=== PATIENT | female | born 2005 | race Two or more races ===

== ENCOUNTER 2024-11-05 19:52 | Emergency (ER) | payer MEDICAID, SELFPAY ==
[2024-11-05 19:54] VITALS: BMI 45.1
[2024-11-05 20:09] VITALS: BP 150/98; PULSE 77; RESP 18; TEMP 37.1; O2SAT 95
--- NOTE | 2024-11-05 20:19 | PD.EDRME ---
Rapid Medical Screening Exam RME Arrival date/time: 11/05/24 19:52 19-year-old female presents emergency department complaining of epigastric pain with 1 episode of vomiting that occurred today. Patient reports seeing small amount of blood in vomit. Chief Complaint: Abdominal Pain Time Seen by Provider: 11/05/24 20:08 Vital signs: Vital Signs Temperature 98.7 F 11/05/24 20:09 Pulse Rate 77 11/05/24 20:09 Respiratory Rate 18 11/05/24 20:09 Blood Pressure 150/98 H 11/05/24 20:09 Pulse Oximetry (%) 95 11/05/24 20:09 Oxygen Delivery Method Room Air 11/05/24 20:09 Vital signs reviewed by provider: Yes
[2024-11-05 21:11] LABS: Basophils % (Auto) 0 % (0-2.5); Eosinophils # (Auto) 0.1 Thou/mm3 (0.0-0.5); Eosinophils % (Auto) 1 % (0-10); Hematocrit 38.9 % (36.0-46.0); Hemoglobin 12.8 g/dL (12.0-16.0); Immature Granulocytes % (Auto) 0 % (0-0); Immature Granulocytes Auto 0.02 Thou/mm3 (0.00-0.00); Lymphocytes # (Auto) 1.8 Thou/mm3 (1.0-4.8); Lymphocytes % (Auto) 23 % (10-50); Mean Corpuscular HGB Conc 32.9 g/dl (31.0-37.0); Mean Corpuscular Hemoglobin 26.5 pg (25.0-35.0); Mean Corpuscular Volume 81 fL (80-100); Monocytes # (Auto) 0.6 Thou/mm3 (0.0-0.8); Monocytes % (Auto) 7 % (0-12); Neutrophils # (Auto) 5.5 Thou/mm3 (1.8-7.7); Neutrophils % (Auto) 69 % (37-80); Nucleated Red Blood Cell % 0 /100 WBC (0); Platelet Count 355 Thou/mm3 (140-440); RDW Standard Deviation 35.1 fL (36.4-46.3); Red Blood Count 4.83 Miln/mm3 (4.00-5.20)
[2024-11-05] MEDS: ONDANSETRON ODT 4 MG TABRAP PO (21:14)
[2024-11-05 21:20] LABS: HCG,Qualitative Serum Negative
[2024-11-05 21:20] LABS: Collection Type, Urine Clean Catch
[2024-11-05 21:21] LABS: Albumin, Serum 4.8 gm/dL (3.5-5.0); Albumin/Globulin Ratio 1.4 (1.2-2.2); Alkaline Phosphatase 102 U/L (46-116); Anion Gap 9 (7-16); Aspartate Amino Transferase 12 U/L (0-34); BUN/Creatinine Ratio 17 Ratio (12-20); Bilirubin,Total 0.4 mg/dL (0.3-1.2); Blood Urea Nitrogen 10 mg/dL (9-23); Calcium 9.7 mg/dL (8.3-10.6); Calcium (Corrected) 9.7 mg/dL (8.5-10.1); Carbon Dioxide 27.4 mMol/L (20.0-31.0); Chloride 103 mMol/L (98-107); Creatinine (Component) 0.6 mg/dL (0.6-1.3); Estimated Creatinine Clearance 202.3 mL/min (>60); Globulin 3.4 gm/dL (2.3-3.5); Glucose 104 mg/dL (74-106); Lipase 37 U/L (12-53); Osmolality,Calculated 276 (275-295); Potassium 3.7 mMol/L (3.4-5.1); Sodium 139 mMol/L (136-145); Total Protein 8.2 gm/dL (5.7-8.2); eGFR > 60 See Note
[2024-11-05 21:28] LABS: Alanine Aminotransferase 11 U/L (10-49)
[2024-11-05 22:15] LABS: Amphetamine/Methamp Scrn,U Negative (Negative); Barbiturate Screen,Urine Negative (Negative); Benzodiazepines Screen,Urine Negative (Negative); Benzoylecgonine Screen, Ur Negative (Negative); Fentanyl Screen,Urine Negative (Negative); Opiate Screen,Urine Negative (Negative); THC Screen,Urine Positive (Negative)
[2024-11-05 22:16] LABS: Bacteria,Urine Rare; Bilirubin,Urine Negative (Negative); Blood,Urine Negative (Negative); Clarity,Urine Turbid (Clear/Hazy); Color,Urine Yellow (Lt Yel-Yel); Culture Indicated,Urine Not Indicated; Glucose, Urine Negative (Negative); Ketones,Urine Negative (Negative); Leukocyte Esterase,Urine Negative (Negative); Nitrite,Urine Negative (Negative); Protein,Urine 1+ (Neg - Trace); RBC,Urine 12 /hpf (0-3); Specific Gravity,Urine 1.034 (1.001-1.035); Squamous Epithelial Cell,Urine 21 /hpf (0-5); Urobilinogen,Urine Negative mg/dL (0.0-1.0); WBC,Urine 1 /hpf (0-5)
[2024-11-05] MEDS: KETOROLAC INJ 60 MG/2 ML VIAL 30 MG IM (22:22)
--- NOTE | 2024-11-05 22:30 | EDNOTE_ITS ---
ED Abdominal Pain RME/HPI General Chief Complaint: Abdominal Pain Stated complaint: UPPER ABD PAIN AND VOMITING Time seen by provider: 11/05/24 20:08 Arrival date/time: 11/05/24 19:52 19-year-old female presents emergency department complaining of epigastric pain with 1 episode of vomiting that occurred today. Patient reports seeing small amount of blood in vomit. Patient denies any current nausea and reports only vomited once. Patient denies any fever, chills, rectal bleeding, or any other associated symptom. Source: patient Mode of arrival: ambulatory Limitations: no limitations RME / HPI RME / HPI narrative: 11/05/24 19:52 19-year-old female presents emergency department complaining of epigastric pain with 1 episode of vomiting that occurred today. Patient reports seeing small amount of blood in vomit. Related Data Previous Rx's ?Medication ?Instructions ?Recorded ondansetron 4 mg disintegrating 4 mg PO Q8H PRN nausea and 04/09/24 tablet vomiting #30 tabs Allergies Allergy/AdvReac Type Severity Reaction Status Date / Time diphenhydramine (From Allergy Verified 11/05/24 19:53 Benadryl) Review of Systems Review of Systems Systems Reviewed: All systems reviewed, normal except as documented Constitutional Constitutional: Reports system reviewed and no additional complaints, except as documented, Denies body ache(s), Denies chills and Denies fever(s) Eyes Eyes: Reports system reviewed and no additional complaints, except as documented and Denies change in vision ENT Ears, Nose, Mouth, and Throat: Reports system reviewed and no additional complaints, except as documented, Denies disequilibrium, Denies dizziness, Denies sore throat and Denies vertigo Cardiovascular Cardiovascular: Reports system reviewed and no additional complaints, except as documented, Denies chest pain and Denies dyspnea Respiratory Respiratory: Reports system reviewed and no additional complaints, except as documented, Denies chest congestion, Denies cough and Denies dyspnea Gastrointestinal Gastrointestinal: Reports system reviewed and no additional complaints, except as documented, Reports abdominal pain, Reports hematemesis, Denies nausea and Reports vomiting Musculoskeletal Musculoskeletal: Reports system reviewed and no additional complaints, except as documented, Denies abnormal gait and Denies arthralgias Integumentary/Breasts Skin/Breast: Reports system reviewed and no additional complaints, except as documented, Denies erythema, Denies rash and Denies wounds Neurologic Neurologic: Reports system reviewed and no additional complaints, except as documented, Denies abnormal gait, Denies disequilibrium, Denies dizziness and Denies vertigo Past Medical History Past Medical History CARDIAC: Negative Congestive Heart Failure RESPIRATORY: Positive Asthma; Negative Chronic Obstructive Pulmonary Disease (COPD) GENITOURINARY: Negative Renal Disease ENDOCRINE: Negative Diabetes Mellitus Type 1 or Diabetes Mellitus Type 2 PSYCHO/SOCIAL: Positive Depression and Anxiety Social History SMOKING STATUS: Never smoker SUBSTANCE USE: does not use ED Exam General Limitations: Present no limitations General appearance: Present alert and in no apparent distress Head Head exam: Present atraumatic Eye Eye exam: Present normal appearance, PERRL and EOMI ENT ENT exam: Present normal exam, normal oropharynx and mucous membranes moist Neck Neck exam: Present normal inspection, full ROM and trachea midline Chest Chest inspection: Present normal inspection and symmetric chest wall rise Respiratory Respiratory exam: Present normal lung sounds bilaterally Cardiovascular Cardiovascular exam: Present regular rate, normal rhythm and normal heart sounds Abdominal Exam Abdominal exam: Present soft and normal bowel sounds Extremities Exam Extremities exam: Present normal inspection and full ROM Back Exam Back exam: Present normal inspection and full ROM Neurological Exam Neurological exam: Present alert, oriented X3 and CN II-XII intact Psychiatric Psychiatric exam: Present normal affect and normal mood Skin Skin exam: Present warm, dry, intact and normal color Course Quality Measures none Orders Category Date Time Status CBC Stat Lab 11/05/24 20:39 Completed CMP [Comprehensive Metabolic Panel] Stat Lab 11/05/24 20:39 Completed Drug Screen,Urine Stat Lab 11/05/24 21:09 Completed HCG,Qualitative Serum Stat Lab 11/05/24 20:39 Completed Lipase Stat Lab 11/05/24 20:39 Completed Urinalysis, C/S if Indicated Stat Lab 11/05/24 21:09 Completed Ketorolac Inj [Toradol Inj] Med 11/05/24 21:36 Discontinued 30 mg IM X1 ONE Ondansetron Odt [Zofran Odt] Med 11/05/24 20:19 Discontinued 4 mg PO X1 ONE Vital Signs Vital signs: Vital Signs Temperature 98.7 F 11/05/24 20:09 Pulse Rate 77 11/05/24 20:09 Respiratory Rate 18 11/05/24 20:09 Blood Pressure 150/98 H 11/05/24 20:09 Pulse Oximetry (%) 95 11/05/24 20:09 Oxygen Delivery Method Room Air 11/05/24 20:09 95% room air within normal limits Abdominal Pain MDM MDM Narrative MDM Narrative:: 19-year-old female presents emergency department complaining of epigastric pain with 1 episode of vomiting that occurred today. Patient reports seeing small amount of blood in vomit. Patient denies any current nausea and reports only vomited once. Patient denies any fever, chills, rectal bleeding, or any other associated symptom. CBC was unremarkable for any leukocytosis or anemia. CMP was unremarkable for any elevated LFTs or gross electrolyte abnormalities with normal lipase. hCG negative. Toxicology of urine positive for THC which may be contributing to her symptoms. At time of exam patient reported no longer feeling nauseous. Patient reported significant improvement in pain after given pain medication. Patient's abdome soft with no tenderness at McBurney's point and negative Castrejon sign. Patient appears nontoxic and is hemodynamically stable. Patient stable for discharge. Patient data External records reviewed:: [facility] previous records Clinical information provided by:: patient Social determinants that could affect healthcare access:: none Patient has the following chronic illnesses:: None How is presenting disease/condition affected by chronic disease/condition?: no chronic disease Evaluation data The following diagnostics were reviewed and interpreted by me:: lab results Lab and/or radiology exams considered but not ordered:: Ordered Interpretation Summary: Interpreted by me Medications / Prescriptions Medications or Prescriptions considered but not ordered:: Ordered Medication administrations:: Medication Administration History Discontinued Medications Ketorolac Tromethamine (Ketorolac Inj 60 Mg/2 Ml Vial) 30 mg IM X1 ONE Stop: 11/05/24 21:37 Last Admin: 11/05/24 22:22 Dose: 30 mg Documented By: KF Ondansetron HCl (Ondansetron Odt 4 Mg Tabrap) 4 mg PO X1 ONE; Protocol Stop: 11/05/24 20:20 Last Admin: 11/05/24 21:14 Dose: 4 mg Documented By: EF Given Consultations Consultation(s) initiated? (list below): No Diagnosis Differential diagnosis abdominal pain: abdominal pain, acute appendicitis, calculus of kidney, constipation, diverticulitis, endometriosis, gastroenteritis, pancreatitis and small bowel obstruction Most likely diagnosis given after review of the tests above:: Abdominal pain Admission Indicated Admission indicated?: not indicated Admission Request Was there a request for admission?: No Disposition Plan Disposition Plan: Discharge Discharge Attestation Discharge Attestation: The patient and all family members were given an opportunity to ask questions and understood the discharge instructions. Discharge instructions specifically effects, indications for sooner follow up or return to the emergency department, and the expected course of current diagnosis. Patient condition: Stable Discharge Plan Plan Patient Disposition: HOME (Self Care) Disposition Comment: Stable Prescriptions/Referrals Prescriptions/Med Rec: No Action ondansetron 4 mg tablet,disintegrating 4 mg PO Q8H PRN (Reason: nausea and vomiting) Qty: 30 0RF Referrals: Castro Gerard MD [Primary Care Provider] - In 1 week Problem List Clinical Impression: Abdominal pain Patient/Caregiver Discharge Instructions Discharge Activity: activity as tolerated Education Materials: Abdominal Pain, ED Abdominal Pain Unkn Cause Fem Additional Instructions: Drink plenty of fluids as tolerated. Take Tylenol or ibuprofen as needed for pain. Follow-up with primary care provider in 2 to 3 days. Smoking marijuana may be contributing to your symptoms. Return to emergency department for any worsening symptoms or as needed. Print Language: Macedonian Stand Alone Forms: Evon Award Info., Patient Portal Info Letter PA/LYNNE Supervising Physician AGNES/LYNNE Supervising Physician: Dr. Cardona
[2024-11-05 23:06] VITALS: BP 145/89; PULSE 68; RESP 18; O2SAT 98
== END 2024-11-05 23:08 | disposition home or self-care (01) ==
PROVIDERS: Emergency Provider Emergency Medicine; PCP Family Medicine
DX: R10.13 Epigastric pain (principal)
CPT/HCPCS: 36415; 80053; 80307; 81001; 83690; 84703; 85025; 96372; 99283; J1885; Q0162

== ENCOUNTER 2025-07-20 14:30 | Outpatient (RCR) | payer MEDICAID, SELFPAY ==
--- NOTE | 2025-07-17 10:11 | PT.OIERPT ---
PT OP Initial Eval Patient Information Outpatient Physical Therapy Treatment Date: 07/17/25 Visit Reasons: left knee pain Medical Diagnosis: M25.562 Treatment Dx #1: L knee pain Start of Care: 07/17/25 Date of Onset: April 2025 Smoking Status Smoking Status: Never smoker Initial Assessment Subjective: Pt is 19 yr old female who fell in April and reports L knee pain which limits walking tolerance. She couldn't get OOB or walk for about 2 days after this happened and then she is wearing a knee brace which helps. Pt feels limited with any mobility, stairs etc. PMH: allergies Imaging: Xrays done at [facility] in [place] Pt goal: to avoid surgery Objective: L knee AROM: ? Flexion: 30 deg limited by pain ? Extension: full ? PROM: 40 deg flexion with pain ? SLR: 45 deg with slight extensor lag ? Strength: L quads 3-/5 limited by patella compression pain, hamstrings 4-/5 ? Antalgic gait pattern with decreased stance time on L Patella compression: positive TTP: medial and lateral patella borders moderate Assessment: Pt has very limited knee flexion ROM limited by pain under patella and quad weakness limited by patella compression pain and patella borders are TTP consistent with patellofemoral pain s/p fall. Pt may benefit from skilled therapy to meet goals and she has fair rehab potential. PT recommends further diagnostic imaging of L knee such as MRI. Short Term and Penitentiary Goals 1. Independent with HEP ? 2. Improved quad strength to 4-/5 ? 3. Improved knee flexion ROM to 90 deg ? 4. Pt will ascend/descend 1 flight of stairs with <=3/10 L knee pain Treatment Plan 1. Manual therapy ? 2. Therex ? 3. Modalities as indicated, MHP, ice, estim Frequency and Duration: 2x a week for 4 visits and reassess. If progressing we will need provider's signature and more authorization to continue to 12 visits. Certification Dates: 07/17/25 to 10/15/25 Procedure Charges OP PT Eval Mod Complex 30 minutes: Yes
--- NOTE | 2025-07-20 15:30 | PT.ODAYNRPT ---
PT Outpatient Daily Note OP Daily Note Outpatient Physical Therapy Treatment Date: 07/20/25 Visit Reasons: left knee pain Subjective: Pt c/o 8/10 L knee pain. Pt shared that she followed up with MD who recommend she continue using knee brace due to swelling. Objective: Please see flow sheet for ther ex list. Assessment: Pt demonstrates poor activity tolerance due to pain response. Plan: Continue with pOC. Length of Time (minutes) of Treatment: 30 Minutes Procedure Charges Therapeutic Exercise 30 minutes: Yes
== END 2025-07-20 23:59 | disposition home or self-care (01) ==
LOC: CPTX 14:30
PROVIDERS: PCP Physician Assistant; Referring Provider Physician Assistant; Visit Provider Physician Assistant
DX: M25.562 Pain in left knee (principal); R26.89 Other abnormalities of gait and mobility; R53.1 Weakness
CPT/HCPCS: 97110; 97162

== ENCOUNTER 2025-08-02 15:30 | Outpatient (RCR) | payer MEDICAID, SELFPAY ==
--- NOTE | 2025-07-25 15:39 | PT.ODAYNRPT ---
PT Outpatient Daily Note OP Daily Note Outpatient Physical Therapy Treatment Date: 07/25/25 Visit Reasons: left knee pain Subjective: Continued L knee pain with bending the knee. Wearing knee brace Objective: See F/S for therex Assessment: Improved AAROM of L knee flexion to almost 90 deg with pain Plan: Continue per POC Length of Time (minutes) of Treatment: 30 Minutes Procedure Charges Therapeutic Exercise 30 minutes: Yes
--- NOTE | 2025-07-27 14:58 | PT.ODAYNRPT ---
PT Outpatient Daily Note OP Daily Note Outpatient Physical Therapy Treatment Date: 07/27/25 Visit Reasons: left knee pain Subjective: Pt reports L knee pain is the same, c/o 02/27 PS. Objective: Please see flow sheet for ther ex list. Assessment: Pt presents in clinic with moderate pain limiting participation. Plan: PTOR to assess for DC note. Length of Time (minutes) of Treatment: 30 Minutes Procedure Charges Therapeutic Exercise 30 minutes: Yes
--- NOTE | 2025-08-02 18:01 | PT.ODS1RPT ---
PT OP Progress/Discharge Note Date of Service: 08/02/25 Progress Note/DC Note Progress Note/Discharge Note: DC Note Patient Information Visit Reasons: left knee pain Service Continue Service or Discharge: Discharge Discharge Date: 08/02/25 Status Subjective: Continued L knee pain with bending the knee and putting weight on it. Pain is unchanged since starting therapy. Wearing knee brace Objective: See F/S for therex L knee ArOM: Flexion: 90 deg Extension: full SLR: 45 deg Strength: Quads: 3-/5 HS: 3-/5 Assessment: Pt has attended 4/4 Rx sessions with limited progress with therapy goals due to continued L knee pain. Pt has met the goal of Improved AAROM of L knee flexion to almost 90 deg with pain. She has not met the goals of improved quad strength to 4-/5 or ascending 1 flight of stairs. PT recommends further diagnostic imaging of L knee such as MRI. Plan: D/C with HEP Procedure Charges Therapeutic Exercise 30 minutes: Yes
== END 2025-08-19 23:59 | disposition home or self-care (01) ==
LOC: CPTX 15:30
PROVIDERS: PCP Physician Assistant; Referring Provider Physician Assistant; Visit Provider Physician Assistant
DX: M25.562 Pain in left knee (principal); R26.89 Other abnormalities of gait and mobility; R53.1 Weakness
CPT/HCPCS: 97110

== ENCOUNTER → 2025-09-18 | Outpatient (CLI) | payer MEDICAID, SELFPAY ==
--- NOTE | 2025-09-18 12:52 | XR_ITS ---
Exam: MRI knee without contrast, left Date and time of exam: September 18, 2025, 1258 hours INDICATIONS: Patient fell April 22, 2025 with injury to the knee, anterior knee pain and instability joint locking and clicking swelling instability Technique: Multiple axial, coronal, and sagittal sections on the knee have been obtained. T2-Weighted sagittal, fat-suppressed images, TR 3,500, TE 62, T2 weighted coronal fat-saturated images, TR 3,500, TE 62 Proton density sagittal sections, TR 1800, TE 31. T-1 weighted coronal images, TR 524, TE 13.0 Findings: Medial meniscus anterior horn intact. Medial meniscus, body intact. Posterior horn medial meniscus intact. Lateral meniscus anterior horn is intact Lateral meniscus, body is intact Posterior horn lateral meniscus is intact Anterior cruciate ligament moderate sprain Posterior cruciate ligament appears intact. Knee effusion small Quadriceps and patellar tendons appear intact. There is no evidence of tendinosis. Inflammatory change or fracture of Hoffa's fat pad is not seen. Medial patellar facet demonstrates no thinning. Lateral patellar facet cartilage demonstrates no thinning. Trochlear cartilage demonstrates no thinning. Marrow signal adequate. Medial collateral ligament appears intact. Suspicious for meniscocapsular separation posterior horn medial meniscus Illiotibial band and fibular collateral ligament are intact. Biceps femoris tendons appear intact. Medial femoral condylar articular cartilage demonstrates mild thinning. Lateral femoral condylar articular cartilage demonstrates mild thinning. Tibial plateau cartilage demonstrates mild thinning. Impression: Moderate sprain intra cruciate ligament Suspicious for meniscocapsular separation posterior horn medial meniscus
== END | disposition home or self-care (01) ==
DX: S83.522A Sprain of posterior cruciate ligament of left knee, initial encounter (principal); X58.XXXA Exposure to other specified factors, initial encounter
CPT/HCPCS: 73721